=== PATIENT | female | born 1985 | race American Indian/Alaskan Native ===

== ENCOUNTER 2023-08-31 18:07 | Emergency (ER) | payer MEDICAID, SELFPAY ==
--- NOTE | ~2023-08-31 | US_ITS ---
EXAMINATION: US OB <=14 wk fetus w TV DATE: 08/31/2023 22:51 INDICATION: Vaginal bleeding with positive test. TECHNIQUE: Real-time pelvic ultrasound utilizing both a transvaginal and transabdominal probe was pe rformed. The interpreting radiologist was not present for the study. COMPARISON: None. FINDINGS: The retroverted uterus measures 4.8 x 2.4 x 4.5 cm. Endometrial complex measures 3 mm in thickness wi th trace amount of fluid within the endometrial canal. 3 mm round anechoic fluid collection at the fu ndus of the uterus peripheral to the endometrial canal most likely representing a early gestational s ac with no discernible yolk sac or pole. 5 mm nabothian cyst at the cervix. The right ovary measures 2.3 x 1.9 x 1.3 cm. 1.1 cm right ovarian cyst/follicle. Facet flow seen in t he right ovary on color Doppler. The left ovary is not visualized. There is small amount of anechoic free fluid in the pelvis. IMPRESSION: 1. 3 mm round fluid collection at the uterine fundus without definitive double decidual sign, yolk sa c or pole is most likely but not definitively representing and of indeterminate viabi lity although ectopic cannot be absolutely excluded. Recommend correlation with serial beta -hCG levels with repeat imaging as clinically indicated. Reviewed, dictated and finalized at location A. [facility]KER IMPRESSION: 1. 3 mm round fluid collection at the uterine fundus without definitive double decidual sign, yolk sac or pole is most likely but not definitively repre senting and of indeterminate viability although ectopic can not be absolutely excluded. Recommend correlation with serial beta-hCG levels w ith repeat imaging as clinically indicated.
[2023-08-31 18:23] VITALS: BP 118/80; PULSE 101; RESP 20; TEMP 36.9; O2SAT 99
[2023-08-31 21:17] VITALS: BP 108/82; PULSE 88; RESP 16; TEMP 36.6; O2SAT 100
[2023-08-31 21:35] LABS: Basophils Percent Auto 0.4 % (0.2-1.2); Eosinophils Absolute Auto 0.1 K/mm3 (0-0.3); Eosinophils Percent Auto 2.1 % (0-4.4); Hematocrit 39.3 % (37.0-47.0); Immature Granulocyte Absolute 0.01 K/mm3 (0.00-0.031); Immature Granulocyte Percent A 0.2 % (0-0.5); Lymphocytes Absolute Auto 0.94 K/mm3 (0.9-3.2); Lymphocytes Percent Auto 19.8 % (18.3-44.2); Mean Corpuscular HGB Conc 33.1 g/dl (32-36); Mean Corpuscular Hemoglobin 30.4 pg (26-34); Mean Corpuscular Volume 91.8 fl (80-100); Mean Platelet Volume 7.7 fl (7.4-10.4); Monocytes Absolute Auto 0.5 K/mm3 (0.1-0.6); Monocytes Percent Auto 10.5 % (2.6-8.5); Neutrophils Absolute Auto 3.2 K/mm3 (1.3-6.7); Platelet Count Result 202 k/mm3 (150-375); Red Blood Count 4.28 M/mm3 (4.2-5.4); Red Cell Distribution Width 11.5 % (11.5-14.5); White Blood Count 4.7 K/mm3 (4.5-10.0)
[2023-08-31 21:46] LABS: Alanine Aminotransferase 21 U/L (6-35); Albumin Level 4.2 g/dL (3.5-5.1); Alkaline Phosphatase 78 U/L (38-126); Anion Gap 6 mmol/L (8-16); Aspartate Amino Transferase 30 U/L (14-36); Bilirubin,Total 1.3 mg/dL (0.2-1.3); Blood Urea Nitrogen 9 mg/dL (7-17); Calcium 8.9 mg/dL (8.4-10.2); Carbon Dioxide 27 mmol/L (22-30); Chloride 104 mmol/L (98-107); Estimated CRCL calculation 89 ml/min; Estimated Glomerular Filt Rate > 60; Glucose 99 mg/dL (65-110); Potassium 3.7 mmol/L (3.4-5.0); Sodium 137 mmol/L (137-145)
--- NOTE | 2023-08-31 22:35 | ED.FEMALEGU ---
HPI - Female Genitourinary General Chief complaint: Vaginal Bleeding <Man Saenz MD - Last Filed: 09/02/23 17:31> Stated complaint: Vaginal bleeding <Man Saenz MD - Last Filed: 09/02/23 17:31> Time Seen by Provider: 08/31/23 21:18 <Man Saenz MD - Last Filed: 09/02/23 17:31> History of Present Illness HPI Narrative: Patient is a 38-year-old female who presents to the emergency department this evening complaining of vaginal bleeding. Patient states that she took a home test and noted that it was positive. Patient was not aware that she was and did not think about it until she started to have some vaginal bleeding. Patient's last menstrual cycle was in June. She admits some mild lower abdominal cramps but denies any additional symptoms including dysuria, hematuria, constipation, diarrhea, melena, hematochezia, fevers or chills. There are no other modifying, alleviating, or precipitating factors at this time. <Man Saenz MD - Last Filed: 09/02/23 17:31> Related Data Allergies/Adverse reactions: Allergies Allergy/AdvReac Type Severity Reaction Status Date / Time No Known Allergies Allergy Verified 08/31/23 21:17 <Man Saenz MD - Last Filed: 09/02/23 17:31> Review of Systems Review of Systems: All systems are reviewed and are negative unless stated otherwise in the HPI. <Man Saenz MD - Last Filed: 09/02/23 17:31> PMFSH Comments Denies any significant past medical or surgical history. Denies significant family history, any tobacco use, alcohol abuse, or illicit drug use. <Man Saenz MD - Last Filed: 09/02/23 17:31> Exam Narrative: General: Alert, awake, afebrile, in no acute distress. HEENT: PERRL, no rhinorrhea, no post nasal drip, oropharynx clear. Neck: Trachea midline, no JVD, no lymphadenopathy. Cardiovascular: Regular rate and rhythm, no murmurs, rubs or gallops, no peripheral edema. Respiratory: Clear to auscultation bilaterally, no tachypnea, no wheezing, no rhonchi, no rubs, no respiratory distress. Abdomen: Soft, nontender, nondistended, no rebound, no guarding, no peritoneal signs. Musculoskeletal: No joint swelling or deformity, normal muscle tone. Skin: No rashes or petechia, no signs of infection. Psychiatric: Alert and oriented, normal behavior and judgment for situation. Neurological: Alert and oriented to person, place, and time. Follows all commands. No focal deficits, speech is clear and fluent. <Man Saenz MD - Last Filed: 09/02/23 17:31> Course Vital Signs Vital signs: Vital Signs Temperature 98.4 F 08/31/23 18:23 Pulse Rate 101 H 08/31/23 18:23 Respiratory Rate 20 08/31/23 18:23 Blood Pressure 118/80 08/31/23 18:23 Pulse Oximetry 99 08/31/23 18:23 Oxygen Delivery Room Air 08/31/23 18:23 Temperature 98.1 F 09/01/23 01:01 Pulse Rate 77 09/01/23 01:01 Respiratory Rate 16 09/01/23 01:01 Blood Pressure 112/86 09/01/23 01:01 Pulse Oximetry 99 09/01/23 01:01 Oxygen Delivery Room Air 08/31/23 18:23 <Man Saenz MD - Last Filed: 09/02/23 17:31> Vital Signs Temperature 98.4 F 08/31/23 18:23 Pulse Rate 101 H 08/31/23 18:23 Respiratory Rate 20 08/31/23 18:23 Blood Pressure 118/80 08/31/23 18:23 Pulse Oximetry 99 08/31/23 18:23 Oxygen Delivery Room Air 08/31/23 18:23 Temperature 98.1 F 09/01/23 01:01 Pulse Rate 77 09/01/23 01:01 Respiratory Rate 16 09/01/23 01:01 Blood Pressure 112/86 09/01/23 01:01 Pulse Oximetry 99 09/01/23 01:01 Oxygen Delivery Room Air 08/31/23 18:23 <Hiram Schmitz DO - Last Filed: 09/01/23 00:16> MDM - Female Genitourinary MDM Narrative Medical decision making narrative: The patient was evaluated by myself in the emergency department. History is obtained from patient who is an independent historian and physical exam was performed.
[2023-08-31 23:18] VITALS: BP 108/84; PULSE 100; RESP 15; O2SAT 100
[2023-09-01 01:01] VITALS: BP 112/86; PULSE 77; RESP 16; TEMP 36.7; O2SAT 99
== END 2023-09-01 02:59 | disposition home or self-care (01) ==
PROVIDERS: Emergency Provider Emergency Medicine
DX: O20.0 Threatened abortion (principal); Z3A.01 Less than 8 weeks gestation of pregnancy
CPT/HCPCS: 36415; 76801; 76817; 80053; 84702; 85025; 86850; 86900; 86901; 99284

== ENCOUNTER 2023-09-03 14:33 | Emergency (ER) | payer MEDICAID, SELFPAY ==
[2023-09-03 14:42] VITALS: BP 125/79; PULSE 99; RESP 16; TEMP 36.4; O2SAT 97
--- NOTE | 2023-09-03 15:23 | ED.GENADULT ---
HPI - General Adult General Chief complaint: Recheck/Abnormal Lab/Rx Stated complaint: Lab recheck Time Seen by Provider: 09/03/23 14:45 History of Present Illness HPI narrative: Patient is telling me that she is for free weeks, came to our emergency room 2 days ago with vaginal bleed was discharged with a diagnosis of threatened back, and was referred to OBGYN, patient came back to check her beta hCG today. Patient denies any new symptoms, denied any vaginal bleeding at this time, her beta hCG 2 days ago was 714.30. Related Data Allergies Allergy/AdvReac Type Severity Reaction Status Date / Time No Known Allergies Allergy Verified 08/31/23 21:17 Review of Systems Review of Systems: All systems reviewed & are unremarkable except as noted in HPI and below Exam Narrative: General appearance: Well-developed, well-nourished Skin: Normal color Head: Normocephalic, nontraumatic Eyes: Clear conjunctiva ENT: Oropharynx normal, ears normal, nose normal Neck: Supple, nontender Chest and respiratory: Airway patent, no respiratory distress, no accessory muscle use Heart: Regular rate/rhythm Abdomen: Soft, nontender, no organomegaly, quiet bowel sounds Vascular: Normal peripheral pulses, normal capillary refill. Musculoskeletal: Normal range of motion, nontender back Neurologic: Alert and oriented ?3, [employer]GRAMMER is normal as tested, no gross motor deficit Course Vital Signs Vital signs: Vital Signs Temperature 36.4 C L 09/03/23 14:42 Pulse Rate 99 09/03/23 14:42 Respiratory Rate 16 09/03/23 14:42 Blood Pressure 125/79 09/03/23 14:42 Pulse Oximetry 97 09/03/23 14:42 Temperature 36.4 C L 09/03/23 14:42 Pulse Rate 99 09/03/23 14:42 Respiratory Rate 16 09/03/23 14:42 Blood Pressure 125/79 09/03/23 14:42 Pulse Oximetry 97 09/03/23 14:42 Medical Decision Making Differential Diagnosis Differential Diagnosis: Threatened versus incomplete Beta hCG today is 743.26, 2 days ago 714.13, consistent with Vital Signs Vital Signs: Vital Signs Temperature 36.4 C L 09/03/23 14:42 Pulse Rate 99 09/03/23 14:42 Respiratory Rate 16 09/03/23 14:42 Blood Pressure 125/79 02/18/24 14:42 Pulse Oximetry 97 09/03/23 14:42 Temperature 36.4 C L 09/03/23 14:42 Pulse Rate 99 09/03/23 14:42 Respiratory Rate 16 09/03/23 14:42 Blood Pressure 125/79 09/03/23 14:42 Pulse Oximetry 97 09/03/23 14:42 Lab Data Labs: Lab Results 09/03/23 Range/Units 15:09 Beta HCG, Quant 743.26 mIU/ML Critical Care Time Critical Care Time Critical Care Time: No Discharge Plan Discharge Clinical Impression: , threatened Patient Disposition: Home, Self-Care Condition: Stable Instructions: Threatened Miscarriage (ED) Additional Instructions: Call Dr. Smalls for follow-up Follow-up/Referrals: Yaakov Smalls MD [Physician] - 09/07/23 PHYSICIAN,MANAGER TRAFFIC [Primary Care Provider] -
== END 2023-09-03 16:28 | disposition home or self-care (01) ==
PROVIDERS: Preventive Medicine Aerospace Medicine; Emergency Provider Emergency Medicine
DX: O20.0 Threatened abortion (principal); Z3A.00 Weeks of gestation of pregnancy not specified
CPT/HCPCS: 36415; 84702; 99283